=== PATIENT | male | born 1925 | race Caucasian/White ===

== ENCOUNTER 2017-05-28 06:29 | Inpatient (IN) | payer MEDICARE, BC ==
[2017-05-25 11:58] LABS: BASOPHILS 0.3 %; BASOPHILS ABSOLUTE 0.02 10/3/uL (0.0-0.16); EOSINOPHILS 7.9 %; EOSINOPHILS ABSOLUTE 0.58 10/3/uL (0.0-0.53); HEMATOCRIT 35.4 % (40.0-51.0); HEMOGLOBIN 11.5 g/dL (13.6-17.8); IMMATURE GRANULOCYTES 0.1 %; IMMATURE GRANULOCYTES ABSOLUTE 0.01 10/3/uL (0.0-0.11); LYMPHOCYTES 13.2 %; LYMPHOCYTES ABSOLUTE 0.97 10/3/uL (0.67-4.30); MANUAL DIFF NO %; MEAN CORPUS HGB CONC 32.5 g/dL (32.0-36.0); MEAN CORPUSCULAR HEMOGLOB 29.6 pg (26.0-34.0); MEAN CORPUSCULAR VOLUME 91.2 fL (80-100); MEAN PLATELET VOLUME 11.4 fL (9.2-13.0); MONOCYTES 10.5 %; MONOCYTES ABSOLUTE 0.77 10/3/uL (0.21-1.20); NEUTROPHILS ABSOLUTE 4.98 10/3/uL (2.02-8.40); PLATELET COUNT 147 10/3/uL (150-400); RED CELL COUNT 3.88 10/6/uL (4.7-6.1); WHITE BLOOD CELLS 7.3 10/3/uL (4.5-10.5)
[2017-05-25 12:06] LABS: INTERNATIONAL NORMAL RATI 1.1 UNITS (-); PROTIME (NOT ORD) 14.2 SEC (12.0-14.5)
[2017-05-25 12:11] LABS: CHLORIDE, SERUM 105 MMOL/L (96-112); CO2 (CARBON DIOXIDE) 28 MMOL/L (24-34); POTASSIUM, SERUM 4.1 MMOL/L (3.5-5.3); SODIUM, SERUM 141 MMOL/L (135-148)
[2017-05-25 12:13] LABS: BUN (BLOOD UREA NITROGEN) 41 MG/DL (6-23); CALCIUM, SERUM 9.3 MG/DL (8.5-10.4); CREATININE 1.67 MG/DL (0.70-1.30); GFR AFRICAN AMERICAN 41 ML/MIN (>=60); GFR NON AFRICAN AMERICAN 36 ML/MIN (>=60); GLUCOSE, SERUM 229 MG/DL (60-99)
[2017-05-25 12:19] LABS: ASCORBIC ACID (UR NOT ORDER) 40 (NEG); BILIRUBIN, URINE NEGATIVE (NEG); KETONE, URINE NEGATIVE (NEG); LEUKOCYTE ESTERASE(NOT OR TRACE (NEG); WBC (NOT ORDERED) (RFLEX) 9 (0-5)
[~2017-05-28] VITALS: Ht 180.3 cm; Wt 72.6 kg
--- NOTE | ~2017-05-28 | OP ---
Record Of Operation [facility] [address] [place]. [address] NAME: LEXIE CHADWICK : [birth year] STATUS : ADM IN PAT#: [id number] AGE: 89 ADM/REG DATE : 05/28/17 MR#: [id number] REPORT SERV DATE: 05/28/17 DICTATED BY: ÓSCAR CONWAY DATE: 05/28/17 REPORT STATUS : Draft TRANSCRIBED BY: MODL DATE: 05/28/17 DATE OF PROCEDURE: 05/28/2017 PREPROCEDURE DIAGNOSIS: Critical left internal carotid artery obstruction. POSTOPERATIVE DIAGNOSIS: Critical left internal carotid artery obstruction. PROCEDURE PERFORMED: Left eversion carotid endarterectomy with intraoperative ultrasound- guidance and permissive hypertension. ANESTHESIA: Local MAC. COMPLICATIONS: None. INDICATION FOR PROCEDURE: Secondary to this very pleasant 89-year-old gentleman presenting with evidence of a critical left carotid artery obstruction. Recommendations were made for left carotid endarterectomy. Risks and benefits discussed. Consent was obtained. DETAILS OF PROCEDURE: The patient was brought to the endovascular operating room, placed in supine position, prepped and draped in a routine sterile fashion with attention to the left neck region. Intraoperative ultrasound was utilized to locate the common carotid artery in its bifurcation. This was marked on the patient's skin and pictures of these structures were taken and placed in the chart. Next, incision was then made after appropriate local and MAC anesthesia. Dissection proceeded down through the skin and subcutaneous tissues to the common carotid artery which was loop controlled; 5000 units of heparin was given and allowed to circulate. The common carotid artery, external carotid artery, and internal carotid artery were dissected free. The superior thyroidal artery was ligated and divided and the external carotid was loop controlled. Next, permissive hypertension was instituted driving systolic blood pressure over 200. Distal internal carotid artery was then clamped with a small clamp followed by the common. The internal carotid artery was then amputated from the bulb. Eversion technique was then utilized to remove a large 95% obstructive plaque in the internal carotid artery all the way to a nice tapering and break off. This was then irrigated clean and it was satisfactory. Next, eversion technique was then utilized to remove plaque from the external bulb and common region to my satisfaction. Once this was completed, the anastomosis was then performed with 6-0 Prolene utilizing a C1 needle running continuous stitch. He tolerated this well. Two patch sutures were used to promote local hemostasis. Surgicel and FloSeal were utilized to promote regional hemostasis. Flushing maneuvers were performed prior to complete closure. The patient maintained normal neurologic integrity throughout. The platysma was then closed with Vicryl and Monocryl for the skin. Steri-Strip dressings were applied. The Record Of Operation [address] [place]. [address] NAME: LEXIE CHADWICK : [birth year] STATUS : ADM IN [facility]#: [id number] AGE: 89 ADM/REG DATE : 05/28/17 MR#: [id number] REPORT SERV DATE: 05/28/17 DICTATED BY: ÓSCAR CONWAY DATE: 05/28/17 REPORT STATUS : Draft TRANSCRIBED BY: ERWIN DATE: 05/28/17 patient tolerated the procedure well. WOODY/ERWIN Óscar Conway M.D. / [id number] CC: Óscar Conway M.D.
[~2017-05-28 06:29] MED LIST: APRES10B PO; APRES50 PO; ARANESP100; ASAB PO; AVANDARYL PO; BENGAY TOP; COREG12 PO; COREG25 PO; COREG6 PO; ELIQUIS 2.5 MG2.5 MG PO; EZFE 200200 MG PO; FERROUS SULF324 MG PO; FESO4 PO; FIBERCON PO; FORTAMET1000 MG PO; GLUCPH PO; HALF81 PO; IMDUR30 PO; IRON; IRON325 MG PO; L20 PO; L40 PO; LANTUS SC; LANTUSCART SC; NAC PO; NAP500 PO; NEUR100 PO; OTC SLEEP AID PO; PLAVIX PO; PREVACID; PRILO PO; PRIN5 PO; PRINZIDE PO; PROTONIX PO; SPORANOX PO; STERAPRED DS10 MG PO; VITAMIN D1000 UNI1 PO; VITAMIN D31000 UNIT PO; VITC500 PO; ZOCOR40 PO; ZOCOR80 MG PO; [UNRECOGNIZED DRUG - CODE] PO; [UNRECOGNIZED DRUG - CODE] PO; [UNRECOGNIZED DRUG - OTHER] SL
[2017-05-28 11:23] LABS: HEMATOCRIT 30.3 % (40.0-51.0)
[2017-05-29] MEDS ORDERED: PCET PO (09:34)
== END 2017-05-29 10:30 | disposition home or self-care (01) | DRG 39 ==
LOC: ENRESERVTM → ENRESERV → ENRESERVDT → SDC/OF 06:29 → PACU 10:15 → CVICU 12:05
PROVIDERS: Specialist
PROC: 03CL0ZZ Extirpation of Matter from Left Internal Carotid Artery, Open Approach (ICD-10-PCS; 2017-05-28)
PROC: 03CN0ZZ Extirpation of Matter from Left External Carotid Artery, Open Approach (ICD-10-PCS; 2017-05-28)
PROC: 03CJ0ZZ Extirpation of Matter from Left Common Carotid Artery, Open Approach (ICD-10-PCS; principal; 2017-05-28 07:45)
DX: I65.22 Occlusion and stenosis of left carotid artery (principal); I70.223 Atherosclerosis of native arteries of extremities with rest pain, bilateral legs; I11.0 Hypertensive heart disease with heart failure; I50.9 Heart failure, unspecified; E11.9 Type 2 diabetes mellitus without complications; Z87.891 Personal history of nicotine dependence; Z95.810 Presence of automatic (implantable) cardiac defibrillator; Z79.899 Other long term (current) drug therapy; Z82.49 Family history of ischemic heart disease and other diseases of the circulatory system; Z82.3 Family history of stroke; Z79.02 Long term (current) use of antithrombotics/antiplatelets; Z79.01 Long term (current) use of anticoagulants; Z79.4 Long term (current) use of insulin
CPT/HCPCS: 71020; 80048; 81001; 82962; 85014; 85018; 85025; 85610; 87641; 88304; 88311; 93005; A9270-GY; J0690; J2250; J2370; J3010